=== PATIENT | female | born 1970 | race Caucasian/White ===

== ENCOUNTER → 2017-04-16 | Outpatient (CLI) | payer OTHER | LOC: FIMAGING 07:11 | PROVIDERS: ATTEND Obstetrics & Gynecology | DX: Z12.31 Encounter for screening mammogram for malignant neoplasm of breast (principal); Z09 Encounter for follow-up examination after completed treatment for conditions other than malignant neoplasm; Z87.42 Personal history of other diseases of the female genital tract | CPT/HCPCS: G0202 ==